=== PATIENT | female | born 1935 | race Asian ===

== ENCOUNTER 2017-11-18 09:41 | Day surgery (SDC) | payer MEDICARE, OTHER ==
[~2017-11-18 09:41] MED LIST: ACETAMINOPHEN 325 MG TAB PO; PROPARACAINE 0.5% OPHTH SOL 15ML OS
[2017-11-18] MEDS: OFLOXACIN 0.3 % (OCUFLOX) OPTH SOL 5ML OS (10:25)
[2017-11-18] MEDS: CYCLOPENTOLATE 2% OPHTH SOLN 2ML BTL OS (10:25)
[2017-11-18] MEDS: TROPICAMIDE 1% OPHTH SOLN 2ML OS (10:25)
[2017-11-18] MEDS: LIDOCAINE 3.5 % 1ML OPHTH TOPICAL GEL OU (10:25)
[2017-11-18] MEDS: PHENYLEPHRINE 2.5% OPHTH SOL 2ML OS (10:25)
[2017-11-18] MEDS ORDERED: fentaNYL 100 MCG/2 ML INJECTION (J3010) As Ordered (11:05)
[2017-11-18] MEDS ORDERED: MIDAZOLAM INJ 2 MG/2 ML VIAL (J2250) As Ordered (11:05)
[2017-11-18] MEDS: BALANCED SALT IRRIGATION SOLUTION 500ML BAG (FOR OR EYE MACHINE) As Ordered (11:08)
[2017-11-18] MEDS: HEALON DUET (HEALON 10MG/ML 0.55ML & HEALON ENDOCOAT 30MG/ML 0.85ML) As Ordered (11:08)
[2017-11-18] MEDS: POVIDONE-IODINE 5% OPHTH PREP SOL 30ML As Ordered (11:08)
[2017-11-18] MEDS: PHENYLEPHRINE HCL 10 % OPHTH. SOL 5ML OS (11:09)
[2017-11-18] MEDS: CEFUROXIME 1MG/0.1ML INTRACAMERAL INJ As Ordered (11:09)
[2017-11-18] MEDS: LIDOCAINE 1% SDV 5 ML VIAL As Ordered (11:09)
[2017-11-18] MEDS: ACETYLCHOLINE OPHTH SOLN 1% 2ML (MIOCHOL-E) As Ordered (11:09)
[2017-11-18] MEDS ORDERED: ACETYLCHOLINE OPHTH SOLN 1% 2ML (MIOCHOL-E) As Ordered (11:17)
[2017-11-18] MEDS: ACETYLCHOLINE OPHTH SOLN 1% 2ML (MIOCHOL-E) XX (11:17)
[2017-11-18] MEDS: KETOROLAC 0.5% OPHTH SOLN OS (11:45)
[2017-11-18] MEDS: AcetaZOLAMIDE 500 MG ER CAP PO (11:45)
[2017-11-18] MEDS ORDERED: TRIMETHOBENZAMIDE 300 MG CAP PO (11:45)
== END 2017-11-18 12:40 | disposition home or self-care (01) ==
LOC: M SDC 09:41
DX: H25.12 Age-related nuclear cataract, left eye (principal); I10 Essential (primary) hypertension; E78.5 Hyperlipidemia, unspecified; J44.9 Chronic obstructive pulmonary disease, unspecified; Z79.899 Other long term (current) drug therapy
CPT/HCPCS: 66984

== ENCOUNTER 2018-01-13 07:57 | Day surgery (SDC) | payer MEDICARE, OTHER ==
[~2018-01-13 07:57] MED LIST changes: +MIDAZOLAM INJ 2 MG/2 ML VIAL (J2250) As Ordered; +PHENYLEPHRINE HCL 10 % OPHTH. SOL 5ML OD; +PROPARACAINE 0.5% OPHTH SOL 15ML OD; -PROPARACAINE 0.5% OPHTH SOL 15ML OS
[2018-01-13] MEDS: OFLOXACIN 0.3 % (OCUFLOX) OPTH SOL 5ML OD (09:30)
[2018-01-13] MEDS: TROPICAMIDE 1% OPHTH SOLN 2ML OD (09:30)
[2018-01-13] MEDS: CYCLOPENTOLATE 2% OPHTH SOLN 2ML BTL OD (09:30)
[2018-01-13] MEDS: PHENYLEPHRINE 2.5% OPHTH SOL 2ML OD (09:30)
[2018-01-13] MEDS: LIDOCAINE 3.5 % 1ML OPHTH TOPICAL GEL OU (09:30)
[2018-01-13] MEDS: POVIDONE-IODINE 5% OPHTH PREP SOL 30ML As Ordered (10:31)
[2018-01-13] MEDS ORDERED: fentaNYL 100 MCG/2 ML INJECTION (J3010) As Ordered (10:36)
[2018-01-13] MEDS: LIDOCAINE 1% SDV 5 ML VIAL As Ordered (10:41)
[2018-01-13] MEDS: BALANCED SALT IRRIGATION SOLUTION 500ML BAG (FOR OR EYE MACHINE) As Ordered (10:43)
[2018-01-13] MEDS: HEALON DUET (HEALON 10MG/ML 0.55ML & HEALON ENDOCOAT 30MG/ML 0.85ML) As Ordered (10:46)
[2018-01-13] MEDS: CEFUROXIME 1MG/0.1ML INTRACAMERAL INJ As Ordered (10:47)
[2018-01-13] MEDS: KETOROLAC 0.5% OPHTH SOLN OD (11:00)
[2018-01-13] MEDS: AcetaZOLAMIDE 500 MG ER CAP PO (11:01)
[2018-01-13] MEDS ORDERED: AcetaZOLAMIDE 500 MG ER CAP As Ordered (11:13)
[2018-01-13] MEDS ORDERED: TRIMETHOBENZAMIDE 300 MG CAP PO (12:00)
[2018-01-13] MEDS ORDERED: ONDANSETRON 4MG/2ML VIAL (J2405) IV (12:00)
== END 2018-01-13 11:45 | disposition home or self-care (01) ==
LOC: M SDC 07:57
DX: H25.11 Age-related nuclear cataract, right eye (principal); I10 Essential (primary) hypertension; E78.5 Hyperlipidemia, unspecified; J44.9 Chronic obstructive pulmonary disease, unspecified; Z79.899 Other long term (current) drug therapy
CPT/HCPCS: 66984

== ENCOUNTER → 2018-10-01 | Outpatient (REF) | payer MEDICARE, OTHER ==
[~2018-10-01] MED LIST changes: -ACETAMINOPHEN 325 MG TAB PO; +ANOR1AER INH; +CALCTAB41 PO; +HYDR12CA PO; +METO1TAB33 PO; -MIDAZOLAM INJ 2 MG/2 ML VIAL (J2250) As Ordered; -PHENYLEPHRINE HCL 10 % OPHTH. SOL 5ML OD; -PROPARACAINE 0.5% OPHTH SOL 15ML OD; +SIMV40TA2 PO; +VITA1CAP6 PO; +VITA50005 PO
== END ==
LOC: M LAB LCGH 12:07
PROVIDERS: ATTEND Orthopaedic Surgery
DX: M00.852 Arthritis due to other bacteria, left hip (principal)

== ENCOUNTER → 2018-10-02 | Outpatient (REF) | LOC: M LAB LCGH 13:44 | PROVIDERS: ATTEND Orthopaedic Surgery | DX: Z00.00 Encounter for general adult medical examination without abnormal findings (principal) ==